=== PATIENT | female | born 1940 | race Caucasian/White ===

== ENCOUNTER → 2023-08-21 08:36 | Outpatient (REF) | payer MEDICARE, OTHER, SELFPAY | LOC: RAD 08:36 | PROVIDERS: ATTENDING PHYSICIAN Surgery Vascular Surgery; FAMILY PHYSICIAN Internal Medicine | DX: Z95.828 Presence of other vascular implants and grafts (principal) | CPT/HCPCS: 93978 ==

== ENCOUNTER 2023-10-24 11:06 | Emergency (ER) | payer MEDICARE, OTHER, SELFPAY ==
[2023-10-24 11:20] VITALS: BP 142/80
[2023-10-24 11:47] LABS: % Basophils 0.4 % (0-2); % Immature Granulocytes 0.3 % (0-0.5); % Lymphocytes 23.5 % (20.5-51.1); % Monocytes 12.2 % (1.7-9.3); % Neutrophils 61.6 % (42.2-75.2); Absolute Eosinophils 0.1 10^3/uL (0-0.7); Absolute Lymphocytes 1.7 10^3/uL (1.2-3.4); Absolute Monocytes 0.9 10^3/uL (0.1-0.6); Absolute Neutrophils 4.4 10^3/uL (1.4-6.5); Hematocrit 38.8 % (37.0-47.0); Hemoglobin 13.6 g/dL (12.0-16.0); Mean Corp Hgb Conc. 35.1 g/dL (33.0-37.0); Mean Corpuscular Hgb 32.9 pg (27.0-31.0); Mean Corpuscular Volume 93.9 fL (81.0-99.0); Mean Platelet Volume 10.6 fL (7.4-10.4); Nucleated Red Blood Cells % 0 %; Platelet Count 310 10^3/uL (130-400); Red Blood Cell Count 4.13 10^6/uL (4.20-5.40); Red Cell Dist. Width 13.2 % (11.5-14.5); White Blood Cell Count 7.1 10^3/uL (4.8-10.8)
[2023-10-24 11:58] LABS: Urine Albumin Negative (Neg - Trace); Urine Bilirubin Negative (Negative); Urine Character Clear (Clear); Urine Color Yellow; Urine Glucose Negative (Negative); Urine Ketone Negative (Negative); Urine Leukocyte Negative (Negative); Urine Nitrite Negative (Negative); Urine Occult Blood Negative (Negative); Urine Specific Gravity 1.015 (<1.030); Urine Urobilinogen Negative (Neg - 1+)
[2023-10-24 12:04] LABS: ALT (SGPT) 21 U/L (0-35); AST (SGOT) 30 U/L (14-36); Albumin 4.3 g/dl (3.5-5.0); Alkaline Phosphatase 52 U/L (38-126); Blood Urea Nitrogen 22 mg/dl (7-17); Calcium 10.2 mg/dl (8.4-10.2); Carbon Dioxide 31 mmol/L (22-30); Chloride 102 mmol/L (98-107); Glucose 103 mg/dl (70-99); Potassium 4.1 mmol/L (3.5-5.1); Sodium 139 mmol/L (135-145); Total Bilirubin 0.8 mg/dl (0.2-1.3); Total Protein 6.8 g/dl (6.3-8.2); eGFR > 60.00
--- NOTE | 2023-10-24 12:48 | ED.GENMED ---
History of Present Illness
General
Chief Complaint: Urinary Symptoms
Time Seen by Provider: 10/24/23 11:55
History of Present Illness
History of Present Illness:
83-year-old female presents emergency department for evaluation of various symptoms that occurred 4 days ago. She notes that she became profoundly weak and was hypothermic associated with gross hematuria. She provides a urinalysis for her primary
care physician that day and was started on nitrofurantoin. Since that time she has felt better but she is concerned that multiple people have informed her that her symptoms sounded severe from the other days and thus she came to the emergency
department for medical evaluation
Review of Systems
Review of Systems
Allergies reviewed?: Yes
All Other Systems: ROS reviewed and negative except as documented in HPI and ROS
Phy Exam
Physical Exam
Physical Exam:
GEN: Well appearing, NAD, WDWN
HEENT: Oral mucosa moist, no scleral icterus
Cardiac: Regular rate
Lung: No respiratory distress, no tachypnea
MSK: No gross deformity or injuries
Skin: Good color, no pallor or jaundice, no rashes
Neuro: AO x3, moves all extremities freely
Psych: Calm, cooperative
Course
Orders/Labs/Results
Orders:
Orders
10/24/23 11:40
Complete Blood Count/With Diff Urgent
Comprehensive Metabolic Panel Urgent
Urinalysis Reflex To Culture Urgent
Date Specimen was Collected: 10/24/23
Time Specimen was Collected: 11:29
Abnormal Lab Results
10/24/23
11:40
RBC 4.13 L 10^6/uL
(4.20-5.40)
MCH 32.9 H pg
(27.0-31.0)
MPV 10.6 H fL
(7.4-10.4)
Absolute Monos (auto) 0.9 H 10^3/uL
(0.1-0.6)
Monocytes % 12.2 H %
(1.7-9.3)
Carbon Dioxide 31 H mmol/L
(22-30)
BUN 22 H mg/dl
(7-17)
Creatinine 0.5 L mg/dL
(0.6-1.0)
Glucose 103 H mg/dl
(70-99)
10/24/23 11:40
10/24/23 11:40
Vital Signs
Initial and Last Documented VS:
Initial Vital Signs
Temp Pulse Resp BP Pulse Ox
98.4 F 66 18 142/80 97
10/24/23 11:20 10/24/23 11:20 10/24/23 11:20 10/24/23 11:20 10/24/23 11:20
Last Documented Vital Signs
Temp Pulse Resp BP Pulse Ox
98.4 F 64 18 138/75 98
10/24/23 11:20 10/24/23 12:58 10/24/23 12:58 10/24/23 12:58 10/24/23 12:58
MDM/Problems Addressed
MDM/Problems Addressed:
Patient's labs and urinalysis are reassuring. I contacted her primary care physician's office however her urine culture is not yet finalized. Certainly her symptoms from the other day sound concerning but she is clearly clinically improved and
will recommend she finish her nitrofurantoin
*Critical Care Note
Total Time (30-74mins, 75-104mins- exclusive of procedures): Not Applicable
Update Note
Update Note:
Patient will be given a prescription for a wheelchair with a leg lift due to the contralateral osseous injuries. She will require the use of the wheelchair within the home in order to complete activities of daily living and is not able to self
propel thus will require her spouse to propel her
ED Attending Note
-
Portions of this chart may have been created with voice recognition software.� Occasional wrong word or��sound alike� substitutions may have occurred due to the inherent limitations of voice recognition software.
Discharge Plan
Departure
Patient Disposition: Home (Routine Discharge)
Date of Disposition: 10/24/23
Time of Disposition: 12:51
Patient with high blood pressure during this ER visit?: No
Discharge Problem:
Urinary tract infection
Instructions: Urinary Tract Infection, Adult (DC)
Interventions
Interventions:
*Risk Screen - Suicide Last Done: 10/24/23 11:20
*General Assessment Last Done: 10/24/23 11:20
*Neglect/Abuse Screening Last Done: 10/24/23 11:20
ED- Fall Risk Assessment Last Done: 10/24/23 13:07
*ED COVID-19 Vaccine History Last Done: 10/24/23 12:58
*Nursing Disposition Last Done: 10/24/23 13:07
ED-Female Genitourinary Assessment Last Done: 10/24/23 12:58
Discharge Date and Time
Discharge Date/Time: 10/24/23 13:07
Print Language: NEPALI
[2023-10-24 12:58] VITALS: BP 138/75
== END 2023-10-24 13:07 | disposition home or self-care (01) ==
LOC: EMR 11:06
PROVIDERS: EMERGENCY PHYSICIAN Emergency Medicine; FAMILY PHYSICIAN Internal Medicine
DX: N39.0 Urinary tract infection, site not specified (principal)
CPT/HCPCS: 99283; 80053; 81003; 85025

== ENCOUNTER 2023-12-01 18:08 | Emergency (ER) | payer MEDICARE, OTHER, SELFPAY ==
[2023-12-01 18:14] VITALS: BP 130/75
[2023-12-01] MEDS: DECADRON 10 MG PO (19:39)
--- NOTE | 2023-12-01 19:52 | ED.SKININJ ---
HPI-Injury
General
Chief Complaint: Skin Problem
Source: patient
Exam Limitations: none
Time Seen by Provider: 12/01/23 19:01
Nursing documentation reviewed up to this point in time: agreed with
History of Present Illness-Injury
Is this injury a work related problem?: No
Is pt an associate of [facility]?: No
Initial Injury comments:
Patient to ED with complaint of itchy rash to chest and abdomen. Symptoms started yesterday. Denies fever/chills, n/v/d. No difficulty breathing or swallowing. No recent antibiotic use. Started on medrol dose pack by PCP this AM with
imrpovement. Taking Benadryl with relief of itching.
Past History
Past History
ED Past Medical History: None
Review of Systems
Review of Systems
All Other Systems: ROS reviewed and negative except as documented in HPI and ROS
Constitutional: Reports no symptoms
EENT: Reports no symptoms
Respiratory: Reports no symptoms
Cardiac: Reports no symptoms
ABD/GI: Reports no symptoms
: Reports no symptoms
Musculoskeletal: Reports no symptoms
Skin: Reports other (rash to chest and abd.)
Neurological: Reports no symptoms
Psychiatric: Reports no symptoms
Phy Exam
General Physical Exam
General Presentation: well appearing and no apparent distress
General age: appears stated age
General Skin: warm and dry
General Habitus: normal
ENT Exam
ENT Exam: neck supple, normocephalic and swallowing well
Pulmonary Exam
Pulmonary Exam: no respiratory distress and chest non tender
Musculoskeletal Exam
Musculoskeletal Exam: full ROM and neuro vasc intact
Skin Exam
Skin Exam: normal color, warm/dry and other (MOrbilliform rash to chest and abd. No rash on face, neck, back, extremities. PRuritic)
Psychiatric Exam
Psychiatric Exam: normal mood/affect
Course
Orders/Labs/Results
Orders:
Orders
12/01/23 19:32
Dexamethasone Pf [Decadron] 10 mg PO NOW STA
Vital Signs
Initial and Last Documented VS:
Initial Vital Signs
Temp Pulse Resp BP Pulse Ox
99.8 F 68 16 130/75 97
12/01/23 18:14 12/01/23 18:14 12/01/23 18:14 12/01/23 18:14 12/01/23 18:14
Last Documented Vital Signs
Temp Pulse Resp BP Pulse Ox
99.8 F 68 16 130/75 97
12/01/23 18:14 12/01/23 18:14 12/01/23 18:14 12/01/23 18:14 12/01/23 18:14
*Critical Care Note
Total Time (30-74mins, 75-104mins- exclusive of procedures): Not Applicable
Update Note
Update Note:
Given dose of decdron in dept. Will continue steroid taper. No difficulty breathing or swallowing. Given instructions on s/s to return to ED and she is agreeable to plan
ED Attending Note
-
Portions of this chart may have been created with voice recognition software.� Occasional wrong word or��sound alike� substitutions may have occurred due to the inherent limitations of voice recognition software.
Discharge Plan
Departure
Patient Disposition: Home (Routine Discharge)
Date of Disposition: 12/01/23
Time of Disposition: 19:34
Patient with high blood pressure during this ER visit?: No
Condition: Good
Covid-19: Not Applicable
Discharge Problem:
Rash, skin
Instructions: Skin Rash (DC)
Referrals:
Jerome Beyer MD [Family Provider] - Tomorrow
Interventions
Interventions:
*Risk Screen - Suicide Last Done: 12/01/23 19:34
*General Assessment Last Done: 12/01/23 19:34
*Neglect/Abuse Screening Last Done: 12/01/23 19:34
ED- Fall Risk Assessment Last Done: 12/01/23 19:34
*ED COVID-19 Vaccine History Last Done: 12/01/23 19:34
*Nursing Disposition Last Done: 12/01/23 19:43
ED-Skin Assessment Last Done: 12/01/23 19:34
Discharge Date and Time
Discharge Date/Time: 12/01/23 19:44
Print Language: MARTIN[place]QU[place]
== END 2023-12-01 19:44 | disposition home or self-care (01) ==
LOC: EMR 18:08
PROVIDERS: EMERGENCY PHYSICIAN Emergency Medicine; FAMILY PHYSICIAN Internal Medicine
DX: R21 Rash and other nonspecific skin eruption (principal)
CPT/HCPCS: 99282

== ENCOUNTER → 2024-09-10 08:31 | Outpatient (REF) | payer MEDICARE, OTHER, SELFPAY | LOC: DHVS 08:31 | PROVIDERS: ATTENDING PHYSICIAN Surgery Vascular Surgery; FAMILY PHYSICIAN Internal Medicine | DX: I73.9 Peripheral vascular disease, unspecified (principal); I87.1 Compression of vein | CPT/HCPCS: 93922; 93925; 93978 ==

== ENCOUNTER → 2024-09-18 08:17 | Outpatient (REF) | payer MEDICARE, OTHER, SELFPAY | LOC: HWRAD 08:17 | PROVIDERS: ATTENDING PHYSICIAN Surgery Vascular Surgery; FAMILY PHYSICIAN Internal Medicine | DX: I73.9 Peripheral vascular disease, unspecified (principal); I87.1 Compression of vein | CPT/HCPCS: 93971 ==

== ENCOUNTER 2024-09-21 18:53 | Emergency (ER) | payer MEDICARE, OTHER, SELFPAY ==
[2024-09-21 18:58] VITALS: BP 142/86
--- NOTE | 2024-09-21 23:36 | ED.GENMED ---
History of Present Illness
General
Chief Complaint: Weakness
Source: patient
Exam Limitations: none
Time Seen by Provider: 09/21/24 23:16
Nursing documentation reviewed up to this point in time: agreed with
History of Present Illness
History of Present Illness:
84-year-old female presents emergency department due to right leg weakness worsening over past 2 weeks. She has been seen by pain management and was operated on by an orthopedic spine surgeon at several years ago. She was sent in by her pain
management doctor.
Past History
Past History
ED Past Medical History: Cancer (Cutaneous B-cell lymphoma, breast cancer) and Other (polio, pulmonary embolus)
ED Past Surgical History: Gynecological (Hysterectomy), Orthopedic (lumbar disc) and Other (Left mastectomy, right breast lumpectomy)
Social History
Tobacco: Non-smoker
Alcohol: None
Drug: None
Personal:
Living: alone
Review of Systems
Review of Systems
Allergies reviewed?: Yes
All Other Systems: Not applicable
Constitutional: Reports no symptoms
EENT: Reports no symptoms
Respiratory: Reports no symptoms
Cardiac: Reports no symptoms
ABD/GI: Reports no symptoms
: Reports no symptoms; Denies incontinence
Musculoskeletal: Reports back pain
Skin: Reports no symptoms
Neurological: Reports weakness
Endocrine: Reports no symptoms
Hematologic/Lymphatic: Reports no symptoms
Psychiatric: Reports no symptoms
Phy Exam
Physical Exam
Physical Exam:
Physical Exam
General: no apparent distress, not acutely ill
Neck: supple. no meningeal signs. normal posterior pharynx
Heart: s1/s2 regular rate and rhythm, no murmur. equal radial
pulses.
HEENT: Pupils equal round reactive to light, EOMI
Lungs: no acute respiratory distress. clear bilaterally
Abdomen: normal bowel sounds. not tender. no CVAT
Neuro: alert and oriented. Left leg weakness, unable to ambulate with, right leg with normal muscle strength, but subjective weakness.
Skin: no rash, lumbar vertical incision scar
Psychiatric: well kept. interactive and cooperative
Extremities: no edema. no calf tenderness. negative homans. good distal pulses
Course
Vital Signs
Initial and Last Documented VS:
Initial Vital Signs
Temp Pulse Resp BP Pulse Ox
98.1 F 99 20 142/86 98
09/21/24 18:58 09/21/24 18:58 09/21/24 18:58 09/21/24 18:58 09/21/24 18:58
Last Documented Vital Signs
Temp Pulse Resp BP Pulse Ox
98.1 F 99 20 142/86 98
09/21/24 18:58 09/21/24 18:58 09/21/24 18:58 09/21/24 18:58 09/21/24 18:58
MDM/Problems Addressed
Differential Diagnosis Includes:
CVA, lumbar radiculopathy
MDM/Problems Addressed:
84-year-old female with right leg weakness, subjective. Patient ambulating, with increased difficulty. Likely lumbar colopathy. Cannot rule out CVA, however patient declines to stay for workup. She will follow-up with neurosurgery. She is
convinced that is a lumbar radiculopathy. No signs of cauda equina.
Chronic conditions affecting care: Neurological disorder (Polio) and Other (Lumbar radiculopathy)
Acute Exacerbation and/or Progression of Chronic Illness: Other (Lumbar radiculopathy)
*Pulse Oximetry
Patient hypoxic: no
*Critical Care Note
Total Time (30-74mins, 75-104mins- exclusive of procedures): Not Applicable
Data Reviewed
Further Testing Considered But Not Given:
MRI, CT scan
Patient Management
Social determinants of health affecting care: Living situation and Strong social support
Escalation/DeEscalation of care consider admission/obs:
Admit not indicated
ED Attending Note
-
Portions of this chart may have been created with voice recognition software.� Occasional wrong word or��sound alike� substitutions may have occurred due to the inherent limitations of voice recognition software.
Discharge Plan
Departure
Patient Disposition: Home (Routine Discharge)
Date of Disposition: 09/21/24
Time of Disposition: 23:44
Patient with high blood pressure during this ER visit?: Yes
Condition: Good
Discharge Problem:
Right leg weakness
Instructions: Radiculopathy of the neck and back (including sciatica) - Discharge instruc, BLOOD PRESSURE
Referrals:
Jerome Beyer MD [Family Provider] -
Bernadine Mccormack MD [Active] - Call in 1-3 days for appt
Interventions
Interventions:
*General Assessment Last Done: 09/21/24 18:58
Discharge Date and Time
Print Language: NOR[place]GI[place]
[2024-09-21 23:43] VITALS: BP 134/80
== END 2024-09-21 23:57 | disposition home or self-care (01) ==
LOC: EMR 18:53
PROVIDERS: EMERGENCY PHYSICIAN Emergency Medicine; FAMILY PHYSICIAN Internal Medicine
DX: R53.1 Weakness (principal); Z86.12 Personal history of poliomyelitis; Z85.3 Personal history of malignant neoplasm of breast; Z85.72 Personal history of non-Hodgkin lymphomas; Z86.711 Personal history of pulmonary embolism; M54.16 Radiculopathy, lumbar region; Z90.12 Acquired absence of left breast and nipple; Z90.710 Acquired absence of both cervix and uterus
CPT/HCPCS: 99282

== ENCOUNTER 2025-02-27 13:08 | Emergency (ER) | payer MEDICARE, OTHER, SELFPAY ==
[2025-02-27 13:10] VITALS: BP 111/66
--- NOTE | 2025-02-27 13:17 | ED.GENMED ---
History of Present Illness
General
Chief Complaint: Weakness
Source: patient and ambulance crew
Exam Limitations: none
Time Seen by Provider: 02/27/25 13:16
Nursing documentation reviewed up to this point in time: agreed with
History of Present Illness
History of Present Illness:
84-year-old female from home with history of breast cancer with left mastectomy, polio (wears a brace left leg to hip), recent root canal, took Amoxicillin 500 mg QID x 10 days, now, post root canal, taking Amoxicillin 500 mg q 6 hours past 3 days.
Has been taking it 3 times a day and last dose was last night. She states she called her neighbor at 10:00 AM today and told him he better get over there because she felt faint. She states she was having abdominal cramping, 'extreme' nausea and
felt chilled and thought she was going to pass out but never did lose consciousness. Neighbor called EMS. She arrives alert, pleasant, states her abdominal pain is gone and she is no longer nauseous. She denies pain from recent root canal, denies
fever, denies CP, SOB.
Past History
Past History
ED Past Medical History: Cancer (Cutaneous B-cell lymphoma, breast cancer) and Other (polio, pulmonary embolus)
ED Past Surgical History: Gynecological (Hysterectomy), Orthopedic (lumbar disc) and Other (Left mastectomy, right breast lumpectomy)
Social History
Tobacco: Non-smoker
Alcohol: None
Drug: None
Personal:
Living: alone
Review of Systems
Review of Systems
Allergies reviewed?: Yes
All Other Systems: ROS reviewed and negative except as documented in HPI and ROS
Phy Exam
Physical Exam
Physical Exam:
GENERAL: No acute distress. A&Ox3.
CONSTITUTIONAL: Afebrile.
EYES: clear, conjunctivae normal
ENMT: moist mucus membranes, Pharynx nl
RESPIRATORY: Regular respirations, nonlabored, lungs clear.
CARDIOVASCULAR: Regular rate and rhythm, no murmurs, no rubs.
GI: Soft, nontender, normal BS
MUSCULOSKELETAL: Moves with ease. Well perfused.
SKIN: Warm, dry, pink
PSYCH: Normal mood and affect. Well kept, interactive and appropriate
NEUROLOGIC: Awake, alert and oriented. No focal neurological deficits
Course
Orders/Labs/Results
Orders:
Orders
02/27/25 13:21
Complete Blood Count/With Diff Urgent
Comprehensive Metabolic Panel Urgent
Lipase Urgent
02/27/25 14:10
0.9% Sodium Chloride 500 ml [Nss] 500 ml IV BOLUS
02/27/25 15:20
Urinalysis Reflex To Culture Urgent
Date Specimen was Collected: 02/27/25
Time Specimen was Collected: 13:20
Urine Microscopic Reflex Cult Urgent
Abnormal Lab Results
02/27/25 02/27/25
13:21 15:20
WBC 10.9 H 10^3/uL
(4.8-10.8)
RBC 4.11 L 10^6/uL
(4.20-5.40)
MCH 32.4 H pg
(27.0-31.0)
Absolute Neuts (auto) 9.1 H 10^3/uL
(1.4-6.5)
Neutrophils % 82.9 H %
(42.2-75.2)
Lymphocytes % 11.0 L %
(20.5-51.1)
Sodium 134 L mmol/L
(135-145)
BUN 28 H mg/dl
(7-17)
Creatinine 0.5 L mg/dL
(0.6-1.0)
Glucose 153 H mg/dl
(70-99)
Urine Ketones 1+ A
(Negative)
Urine Bacteria (Reflex) Few A
(Negative)
Urine Albumin (Reflex) 2+ A
(Neg - Trace)
02/27/25 13:21
02/27/25 13:21
Vital Signs
Initial and Last Documented VS:
Initial Vital Signs
Temp Pulse Resp BP Pulse Ox
98 F 64 18 111/66 98
02/27/25 13:10 02/27/25 13:10 02/27/25 13:10 02/27/25 13:10 02/27/25 13:10
Last Documented Vital Signs
Temp Pulse Resp BP Pulse Ox
98 F 61 18 109/89 93
02/27/25 13:10 02/27/25 15:10 02/27/25 15:10 02/27/25 16:00 02/27/25 16:00
MDM/Problems Addressed
Differential Diagnosis Includes:
Side effect of amoxicillin w abdominal pain, vasovagal episode, dehydration
MDM/Problems Addressed:
84-year-old female from home with history of breast cancer with left mastectomy, polio (wears a brace left leg to hip), recent root canal, took Amoxicillin 500 mg QID x 10 days, now, post root canal, taking Amoxicillin 500 mg q 6 hours past 3 days.
Has been taking it 3 times a day and last dose was last night. She states she called her neighbor at 10:00 AM today and told him he better get over there because she felt faint. She states she was having abdominal cramping, 'extreme' nausea and
felt chilled and thought she was going to pass out but never did lose consciousness. Neighbor called EMS. She arrives alert, pleasant, states her abdominal pain is gone and she is no longer nauseous. She denies pain from recent root canal, denies
fever, denies CP, SOB.
Afebrile, NAD
Vital signs stable
CBC with no clinically significant abnormality
CMP with no clinically significant abnormality BUN is 28 so she may be a little dry. IVFs ordered
U/A neg
Pt has been asymptomatic since arrival.
OOB and ambulating well.
She agrees it was the abdominal pain that made her feel faint and call her neighbor.
Most likely vaso vagal response
Stable for discharge
*Pulse Oximetry
SaO2: 98
Oxygen Mode of Delivery: Room air
Patient hypoxic: no
*Critical Care Note
Total Time (30-74mins, 75-104mins- exclusive of procedures): Not Applicable
ED Attending Note
-
Portions of this chart may have been created with voice recognition software.� Occasional wrong word or��sound alike� substitutions may have occurred due to the inherent limitations of voice recognition software.
Discharge Plan
Departure
Patient Disposition: Home (Routine Discharge)
Date of Disposition: 02/27/25
Time of Disposition: 16:02
Patient with high blood pressure during this ER visit?: No
Condition: Good
Discharge Problem:
Vasovagal episode
Instructions: Near Fainting (DC), Abdominal Pain
Prescriptions:
No Action
oxazepam 10 mg Capsule
10 mg PO HS
amoxicillin 500 mg Tablet
500 mg PO QID
levothyroxine 75 mcg Tablet
75 mcg PO DAILY
Rx Instructions:
saturday to saturday
levothyroxine 50 mcg Tablet
50 mcg PO DAILY
Rx Instructions:
saturday to saturday
rosuvastatin 5 mg Tablet
3 mg PO DAILY
Rx Instructions:
Saturday, saturday
aspirin 81 mg Capsule
81 mg PO DAILY
Referrals:
Your, Dentist [Other] - Keep scheduled appt
Jerome Beyer MD [Family Provider, Internal Medicine] - Call in 1-3 days for appt
Activity Restrictions/Additional Instructions:
As we discussed, nothing worrisome in your workup here today. Your abdominal pain probably caused you to have a near fainting or vasovagal episode.
Your nausea and abdominal pain are probably from a side effect of so much amoxicillin. Be sure to have food in your stomach prior to taking the Amoxicillin.
Drink plenty of fluids and see your dentist as scheduled Saturday.
Interventions
Interventions:
*Risk Screen - Suicide Last Done: 02/27/25 13:10
*General Assessment Last Done: 02/27/25 13:10
*Neglect/Abuse Screening Last Done: 02/27/25 13:10
*Nursing Disposition Last Done: 02/27/25 16:58
ED- Cardiac Assessment Last Done: 02/27/25 13:17
ED- Neurological Assessment Last Done: 02/27/25 13:17
ED- Pulmonary Assessment Last Done: 02/27/25 13:17
Discharge Date and Time
Discharge Date/Time: 02/27/25 16:58
Print Language: [place]
[2025-02-27 13:30] LABS: Hematocrit 39.3 % (37.0-47.0); Hemoglobin 13.3 g/dL (12.0-16.0); Mean Corp Hgb Conc. 33.8 g/dL (33.0-37.0); Mean Corpuscular Volume 95.6 fL (81.0-99.0); Nucleated Red Blood Cells % 0 %; Platelet Count 313 10^3/uL (130-400); Red Cell Dist. Width 13.6 % (11.5-14.5)
[2025-02-27 13:46] LABS: ALT (SGPT) 25 U/L (0-35); AST (SGOT) 29 U/L (14-36); Albumin 4.1 g/dl (3.5-5.0); Alkaline Phosphatase 45 U/L (38-126); Blood Urea Nitrogen 28 mg/dl (7-17); Calcium 9.8 mg/dl (8.4-10.2); Carbon Dioxide 28 mmol/L (22-30); Chloride 102 mmol/L (98-107); Glucose 153 mg/dl (70-99); Lipase 94 U/L (23-300); Potassium 4.4 mmol/L (3.5-5.1); Sodium 134 mmol/L (135-145); Total Protein 6.5 g/dl (6.3-8.2); eGFR > 60.00
[2025-02-27 14:00] VITALS: BP 110/62
[2025-02-27] MEDS: NSS 500 IV (14:20)
[2025-02-27 15:22] VITALS: BP 113/61
[2025-02-27 15:27] LABS: Urine Character Slightly Cloudy (Clear)
[2025-02-27 15:53] LABS: Urine Red Blood Cell 0-2 /HPF (0-2); Urine Squamous Cell 0-2 /LPF (Few); Urine White Cell 0-2 /HPF (0-5)
[2025-02-27 16:00] VITALS: BP 109/89
== END 2025-02-27 16:58 | disposition home or self-care (01) ==
LOC: EMR 13:08
PROVIDERS: Registered Nurse; EMERGENCY PHYSICIAN Emergency Medicine; FAMILY PHYSICIAN Internal Medicine
DX: R55 Syncope and collapse (principal); Z85.3 Personal history of malignant neoplasm of breast; Z90.13 Acquired absence of bilateral breasts and nipples; Z85.72 Personal history of non-Hodgkin lymphomas; Z86.711 Personal history of pulmonary embolism; Z86.12 Personal history of poliomyelitis
CPT/HCPCS: 99284; 96360; 80053; 81003; 81015; 83690; 85025

== ENCOUNTER 2025-04-07 13:32 | Outpatient (RCR) | payer MEDICARE, OTHER, SELFPAY ==
[2025-04-07] MEDS: PROLIA 60 MG SC (14:23)
== END 2025-04-08 10:02 | disposition home or self-care (01) ==
LOC: OID 13:32
PROVIDERS: ATTENDING PHYSICIAN Internal Medicine Endocrinology, Diabetes & Metabolism; FAMILY PHYSICIAN Internal Medicine
DX: M81.0 Age-related osteoporosis without current pathological fracture (principal)
CPT/HCPCS: 96372; J0897

== ENCOUNTER → 2025-04-30 07:57 | Outpatient (REF) | payer MEDICARE, OTHER, SELFPAY | LOC: DHVS 07:57 | PROVIDERS: ATTENDING PHYSICIAN Surgery Vascular Surgery; FAMILY PHYSICIAN Physician Assistant Medical; REFERRING PHYSICIAN Internal Medicine | DX: I73.9 Peripheral vascular disease, unspecified (principal) | CPT/HCPCS: 93922 ==